=== PATIENT | male | born 1965 | race Caucasian/White ===

== ENCOUNTER → 2020-03-30 18:27 | Outpatient (CLI) | payer OTHER, SELFPAY ==
--- NOTE | 2020-03-30 18:33 | DI.MRI.S_ITS ---
PROCEDURE: MR ANKLE RT WO CON INDICATIONS: PAIN IN RIGHT FOOT TECHNIQUE: Noncontrast sagittal T1 spin echo and T2 fast spin echo with fat saturation, axial proton density fast spin echo and T2 fast spin echo with fat saturation, coronal T1 spin echo and T2 fast spin echo with fat saturation through the ankle/hindfoot. COMPARISON: None. FINDINGS: Image quality: Excellent. Bones and joints: No bone marrow contusions or fractures. No hindfoot coalitions. No osteochondral injuries of the talar dome. No pathologic joint effusions. Medial structures: The posterior tibialis, flexor digitorum longus, and flexor hallucis longus tendons are intact. The posterior tibial neurovascular bundle appears normal within the tarsal tunnel, without extrinsic mass effect. The deep layer (anterior and posterior tibiotalar ligaments) and superficial layer (tibionavicular, tibiospring, and tibiocalcaneal ligaments) of the deltoid ligament appear normal. The spring ligament components (superomedial calcaneonavicular, medioplantar oblique calcaneonavicular, and inferoplantar longitudinal ligaments) are intact. Lateral structures: The anterior talofibular, calcaneofibular, and posterior talofibular ligaments appear intact. More superiorly, the anterior and posterior tibiofibular ligaments appear intact, as is the intermalleolar ligament. The tibiofibular syndesmosis is normal in width at 2 mm or less. The peroneus longus and brevis tendons demonstrate normal location and morphology. Adjacent bony peroneal tubercle and retrotrochlear prominence are normal in size. The sinus tarsi demonstrates normal fatty signal, without edema, fibrosis, or cyst formation. Visualized sinus tarsi components (cervical ligament, interosseous talocalcaneal ligament, roots of the inferior extensor retinaculum) appear normal. The calcaneonavicular and calcaneocuboid components of the bifurcate ligament appear intact. The dorsal calcaneocuboid ligament appears intact. Anterior structures: The tibialis anterior, extensor hallucis longus, and extensor digitorum longus tendons appear intact. The dorsal talonavicular ligament appears intact. 7 x 6 millimeters oval cystic structure is noted over dorsal aspect of middle cuneiform and may represent a small ganglion cyst. Lobulated cystic area over lateral aspect of anterior subtalar joint measures up to 1 x 1.8 x 1.3 cm in size and appears to be communicating with adjacent anterior subtalar joint. Posterior and plantar structures: Achilles tendon is intact. Medial and lateral bands of the plantar fascia are of normal thickness. No abductor digiti quinti muscle atrophy to suggest Salazar neuropathy. 8 millimeter heterogeneously T1 hypointense and T2 hyperintense structure is noted within subcutaneous soft tissue of posterior plantar left heel without surrounding soft tissue edema or overlying skin thickening. IMPRESSION: 1. No marrow edema. No suspicious intraosseous lesion. No fracture or dislocation. 2. Superficial 8 mm predominantly cystic structure is seen in subcutaneous soft tissue of posterior plantar left heel without adjacent inflammatory changes or skin thickening. Finding may represent benign or malignant cystic neoplasm, suggest clinical correlation. 3. Possible ganglion cysts seen in dorsal aspect of middle cuneiform and lateral to the anterior subtalar joint as above. 4. Ankle tendons and ligaments are grossly intact. Achilles tendon is intact. Dictated by: Helder Nobles M.D. on 03/31/2020 at 8:48 Approved by: Helder Nobles M.D. on 03/31/2020 at 8:53
== END ==
PROVIDERS: Referring Provider Podiatrist; Visit Provider Podiatrist
DX: M79.671 Pain in right foot (principal); R22.9 Localized swelling, mass and lump, unspecified
CPT/HCPCS: 73721